=== PATIENT | female | born 1940 | race Caucasian/White ===

== ENCOUNTER 2017-08-12 12:11 | Emergency (ER) | payer MEDICARE, OTHER, MEDICAID | END 2017-08-12 16:54 | disposition home or self-care (01) | LOC: FTE 12:11 | DX: S89.91XA Unspecified injury of right lower leg, initial encounter (principal); S49.91XA Unspecified injury of right shoulder and upper arm, initial encounter; I10 Essential (primary) hypertension; F17.210 Nicotine dependence, cigarettes, uncomplicated; X58.XXXA Exposure to other specified factors, initial encounter; Y92.9 Unspecified place or not applicable; Z79.82 Long term (current) use of aspirin; Z79.84 Long term (current) use of oral hypoglycemic drugs | CPT/HCPCS: 73030; 73030-RT; 73060-RT; 73562; 93971; 99284-25 ==